=== PATIENT | male | born 1965 | race Caucasian/White ===

== ENCOUNTER 2019-06-28 11:57 | Emergency (ER) | payer SELFPAY ==
[2019-06-28 12:16] VITALS: BP 128/79; PULSE 71; RESP 12; TEMP 36.4; O2SAT 98
--- NOTE | 2019-06-30 17:27 | W.ED.GENAD ---
Discharge Plan Disposition Patient Disposition: HOME Condition: Good Discharge Details Chief Complaint: Cellulitis Clinical Impression: Paronychia Primary Care Provider: [facility] Provider: Rosario Vergara Home Meds and New Rx's Prescriptions: New mupirocin 2 % ointment 1 applic TP TID Qty: 15 RF: 0 cephalexin [Keflex] 500 mg capsule 500 mg PO QID Qty: 40 RF: 0 No Action tamsulosin 0.4 mg Capsule 0.4 mg PO DAILY RF: 0 omeprazole 20 mg Capsule,Delayed Release(Dr/Ec) 20 mg PO DAILY RF: 0 lisinopril-hydrochlorothiazide 20-12.5 mg Tablet 1 tab PO DAILY RF: 0 Discharge Instructions Instructions: Paronychia (ED) Additional Instructions: Soak with warm water and Epsom salt for 5 minutes 2-3 times daily. After soaking wash with soap and water once or twice daily. Apply topical antibiotic ointment to the wound. Use antibiotic ointment provided. Use antibiotic as prescribed by mouth. Observe for any increased redness, pain or swelling. Return for any worsening or concerns sooner if needed Discharge Data Discharge Date/Time-TO BE ENTERED AT DEPARTURE: 06/28/19 13:05 Medical Decision Making Is a 53-year-old patient who presents with a paronychia of his left great toe after multiple injuries to the toe. Patient denies any concern of fracture. Has full range of motion. Was offered an x-ray and declines. Patient is concerned primarily with developing infection at the base of the great toe. Exam consistent with fluctuant paronychia. Incision and drainage of her maximum area of fluctuance at the base of the nail near the nailbed. Moderate purulent drainage expressed, wound irrigated. Patient prescribed Keflex as well as mupirocin for wound management. Wound care was discussed, soaking with Epsom salt discussed. Patient feels very comfortable with plan of care. Tolerated procedure without any difficulty. Alarming symptoms for which patient should have return were discussed. Wound culture is pending. The patient was stable and requested discharge. Prior to discharge, my usual and customary return precautions were reviewed with the patient - this included follow-up instructions and reasons to return to the Emergency Department if conditions worsens, does not improve as expected, or other new concerns arise. HPI General Date/Time Provider Initiated Documentation: 06/28/19 12:40. HPI Narrative: This is a 53-year-old patient who presents for complaints of left great toe pain. Patient reports he dropped something on his foot several weeks ago then again dropped something on his foot 1 week ago. Patient reports no increased redness and swelling at the base of his nail on his left great toe. Patient reports pain with palpation of the area but no significant pain with range of motion. Denies numbness, tingling or weakness. Denies any systemic symptoms. Denies fever, chills, nausea and vomiting. No other concerns or complaints. Related Data Home Medications Medication Instructions Recorded Confirmed cephalexin [Keflex] 500 mg PO QID #40 cap 06/28/19 lisinopril-hydrochlorothiazide 1 tab PO DAILY 06/28/19 06/28/19 mupirocin 1 applic TP TID #15 gm 06/28/19 omeprazole 20 mg PO DAILY 06/28/19 06/28/19 tamsulosin 0.4 mg PO DAILY 06/28/19 06/28/19 Previous Rx's Medication Instructions Recorded cephalexin [Keflex] 500 mg PO QID #40 cap 06/28/19 mupirocin 1 applic TP TID #15 gm 06/28/19 Allergies Allergy/AdvReac Type Severity Reaction Status Date / Time No Known Allergies Allergy Unverified 06/28/19 12:19 General Stated Complaint: Cellulitis PING: 4 Review of Systems All systems reviewed & are unremarkable except as noted in HPI and below Constitutional Constitutional: Denies chills, Denies fever(s) and Denies malaise Musculoskeletal Musculoskeletal: Denies deformity and Denies limited range of motion Integumentary/Breasts Skin/Breast: Reports erythema and Reports skin swelling [facility] Social History Smoking/Tobacco Use Status: Current every day Tobacco Type: smokeless tobacco Alcohol Intake: never Drug use: Never Substance use type: does not use Do you feel safe at home: Yes Do you feel safe in your relationship?: Yes Exam Narrative Exam Narrative: CONST: Healthy appearing patient, in no acute distress. Well hydrated. Alert and alert. MUSCULOSKELETAL: No foot pain with palpation. Full range of motion of toes. No limitation of flexion or extension of left great toe. SKIN: Normal. Dry. No rashes. Patient with paronychia present of the left great toe with fluctuation present and erythema. Nothing to indicate a felon. No lymphangitis. Nothing to indicate tenosynovitis NEURO: Alert and awake. Speech clear. PSYCH: Normal affect. Cooperative. Course Vital Signs Vital signs: Vital Signs Temperature 36.4 C L 06/28/19 12:16 Pulse 71 06/28/19 12:16 Respiratory Rate 12 06/28/19 12:16 Blood Pressure 128/79 06/28/19 12:16 Pulse Oximetry 98 06/28/19 12:16 Temperature 36.4 C L 06/28/19 12:16 Temperature Source Temporal Artery Scan 06/28/19 12:16 Pulse 71 06/28/19 12:16 Respiratory Rate 12 06/28/19 12:16 Respiratory Effort Non-Labored 06/28/19 12:18 Blood Pressure 128/79 06/28/19 12:16 Blood Pressure Position Sitting 06/28/19 12:16 Pulse Oximetry 98 06/28/19 12:16 Oxygen Delivery Method Room Air 06/28/19 12:16 Oxygen Flow Rate 0 06/28/19 12:16 Pain Level 4 06/28/19 12:54 Lab/Test Results Lab/Test Results: 06/28/19 12:30 Toe - Right Big Toe Skin Culture - Preliminary Normal [facility] Procedures Abscess I/D Site: Foot Side (if applicable): Left Sedation/analgesia: None Technique: Incised with #11 Blade Amount of fluid expressed (mL): 2 Irrigation: Yes Packing used?: None
== END 2019-06-28 13:05 | disposition home or self-care (01) ==
PROVIDERS: Emergency Provider Physician Assistant
DX: L03.032 Cellulitis of left toe (principal)
CPT/HCPCS: 10060; 90471; 87070